=== PATIENT | male | born 1985 | race Caucasian/White ===

== ENCOUNTER 2024-08-18 02:34 | Emergency (ER) | payer SELFPAY ==
[~2024-08-18] VITALS: Ht 180.3 cm; Wt 72.6 kg
[2024-08-18] MEDS ORDERED: NAPROXEN 500 MG TABLET ONE (03:16)
[2024-08-18] MEDS: NAPROXEN 500 MG TABLET PO ONE (03:28)
[2024-08-18 03:41] VITALS: BP 141/100; TEMP 98.6; O2SAT 98
== END 2024-08-18 03:41 | disposition home or self-care (01) ==
LOC: ER 02:50
DX: B34.9 Viral infection, unspecified (principal); R19.7 Diarrhea, unspecified; R45.1 Restlessness and agitation; Z59.00 Homelessness unspecified
CPT/HCPCS: A4606; A4663